=== PATIENT | female | born 1970 | race Caucasian/White ===

== ENCOUNTER 2018-02-28 17:19 | Emergency (ER) | payer BC ==
[~2018-02-28] VITALS: Ht 172.7 cm; Wt 113.4 kg
[~2018-02-28 17:19] MED LIST: ALBUTEROL2.5 MG/3 M INH; ANUSOL-HC30 GM RC; CABERGOLINE0.5 MG PO; CIPROFLOXACIN250 MG PO; CYCLOBENZAPRINE5 MG PO; DICLOFENAC SODI75 MG PO; DILAUDID4 MG PO; DILTIAZEM HCL10 GM TOP; DULOXETINE HCL30 MG PO; ENDOCET 5-3251 EACH PO; HYDROMORPHONE HC4 MG PO; LIDOCAINE30 G TOP; MEDROL4 M1 PO; MEDROXYPROGESTE10 MG PO; MIRALAX17 GM PO; NORCO 5-325 TA1 EACH PO; OMEPRAZOLE20 MG PO; PROCTOFOAM-HC F10 GM RC; PROCTOZONE-HC30 G1 PR; PYRIDIUM200 MG PO; ROBAXIN-750750 MG PO; SENOKOT-S TABL1 EACH PO; TESSALON PERLE100 MG PO; TIZANIDINE HCL4 M1 PO; TRAMADOL HCL50 MG PO; TRIAZOLAM0.25 MG PO; TYLENOL WITH C1 EACH PO; VENTOLIN HFA18 GM INH
[2018-02-28] MEDS ORDERED: ZOFRAN ODT4 MG PO (20:22)
== END 2018-02-28 20:27 | disposition home or self-care (01) ==
LOC: ED 17:19
PROC: 0T9B70Z Drainage of Bladder with Drainage Device, Via Natural or Artificial Opening (ICD-10-PCS; principal; 2018-02-28)
DX: K52.9 Noninfective gastroenteritis and colitis, unspecified (principal); Z88.1 Allergy status to other antibiotic agents; Z88.2 Allergy status to sulfonamides; Z79.899 Other long term (current) drug therapy
CPT/HCPCS: 51701; 76705; 80053; 81001; 82150; 83690; 84703; 85025; 96361; 96374; 96375; 99284; J1885; J2405; J7040

== ENCOUNTER 2020-04-08 17:15 | Emergency (ER) | payer BC ==
[~2020-04-08] VITALS: Ht 172.7 cm; Wt 118.8 kg
[~2020-04-08 17:15] MED LIST changes: +ZOFRAN ODT4 MG PO
--- OUTSIDE RECORDS SUMMARY | 2020-04-08 17:18 | XMS ---
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 ELuisa VISIT COUNT (12 MO.) 1 ABBIE Das TOTAL 1 NOTE: Visits indicate total known visits. ED/UCC VISIT TRACKING (12 MO.) 04/08/2020 17:16 ABBIE Vega OR TYPE: Emergency COMPLAINT: - DIARRHEA, FEVER INPATIENT VISIT TRACKING (12 MO.) No inpatient visits to display in this time frame [id number]
[2020-04-08] MEDS ORDERED: LISINOPRIL20 MG PO (17:30)
[2020-04-08] MEDS ORDERED: METFORMIN HCL500 M2 PO (17:32)
[2020-04-08] MEDS ORDERED: DULOXETINE HCL60 MG PO (17:34)
[2020-04-08] MEDS ORDERED: ZOFRAN4 MG PO (19:09)
[2020-04-08] MEDS ORDERED: DICYCLOMINE HCL10 MG PO (19:09)
== END 2020-04-08 20:45 | disposition home or self-care (01) ==
LOC: ED 17:15
DX: K52.9 Noninfective gastroenteritis and colitis, unspecified (principal); E11.9 Type 2 diabetes mellitus without complications; I10 Essential (primary) hypertension; Z88.8 Allergy status to other drugs, medicaments and biological substances; Z88.2 Allergy status to sulfonamides; Z79.899 Other long term (current) drug therapy; Z79.84 Long term (current) use of oral hypoglycemic drugs
CPT/HCPCS: 80053; 83690; 83735; 84703; 85025; 96361; 96374; 96375; 96376; 99284-25; C9803; J1885; J2405; J7030; J7040; U0002

== ENCOUNTER 2020-09-27 14:50 | Day surgery (SDC) | payer BC ==
[~2020-09-27] VITALS: Ht 167.6 cm; Wt 120.0 kg
[~2020-09-27 14:50] MED LIST changes: +DICYCLOMINE HCL10 MG PO; +DULOXETINE HCL60 MG PO; +LISINOPRIL20 MG PO; +METFORMIN HCL500 M2 PO; +ZOFRAN4 MG PO
--- NOTE | 2020-09-27 14:55 | NUR ---
PT ARRIVES TO DAY SURGERY WALKING INDEPENDENTLY ACCOMPANIED BY AND PLACED IN RM 7. WARM BLANKET PROVIDED.
[2020-09-27] MEDS ORDERED: FIBER500 MG PO (15:16)
[2020-09-27] MEDS ORDERED: LYRICA75 MG PO (15:16)
[2020-09-27] MEDS ORDERED: PROBIOTIC1 EAC1 PO (15:17)
[2020-09-27] MEDS ORDERED: CALCIUM500 M1 PO (15:17)
--- NOTE | 2020-09-27 15:55 | NUR ---
PRE PROCEDURE CHECK IN COMPLETE. PT RESTING IN LOCKED AND LOWERED BED, CALL LIGHT WITHIN REACH, AT THE BEDSIDE, NO FURTHER REQUESTS AT THIS TIME.
--- NOTE | 2020-09-27 17:18 | NUR ---
1710 UP TO BR. IV PATENT. HAS BEEN UPDATED WITH WAIT.
--- NOTE | 2020-09-27 18:08 | NUR ---
09/27/20 379 Dara Tavarez- PT ARRIVES TO PACU WITH EYES CLOSED. PT IS ABLE TO ANSWER QUESTIONS. PT REPORTS NO PAIN OR NAUSEA. RESP EVEN AND UNLABORED. OXYGEN SAT HIGH 90'S TO 100% ON 3L VIA NC.
--- NOTE | 2020-09-28 08:53 | OR ---
[facility] [address], [place] [address] Signed DATE OF OPERATION: 09/27/2020 SURGEON: Kev Collado MD PREOPERATIVE DIAGNOSES: 1. Persistent left lower abdominal pain, episodic rectal bleeding. 2. Colonoscopy greater than 20 years ago, uncertain location and findings. 3. Diarrhea, alternated with constipation. POSTOPERATIVE DIAGNOSES: 1. Extensive diverticulosis of sigmoid and left colon. 2. Hyperplastic polyp of rectosigmoid. PROCEDURES: Total colonoscopy to cecum with cold morcellation polypectomy x1. ANESTHESIA: Intravenous sedation, fentanyl 200 mcg, and Versed 7 mg. INDICATION: This 49-year-old white woman is a patient Dr. Welch and has problems of left lower abdominal pain and episodic rare rectal bleeding. She has a history of colonoscopy many years ago. She cannot remember where or when or what was found. She additionally complains of diarrhea, alternating with constipation. She was admitted at this time to undergo colonoscopy. She understands the risks of bleeding, infection, perforation. FINDINGS: The prep was good. Complete colonoscopy was undertaken of the cecum without question. She had numerous large and small diverticula of the sigmoid and left colon, likely accounting for symptoms. There was a small hyperplastic polyp of the sigmoid, which was excised. The rectum was normal except for some minimal internal hemorrhoidal changes. DESCRIPTION OF PROCEDURE: The patient was brought to the endoscopy suite and placed in lateral decubitus position, given intravenous sedation to the point of slurred speech and nystagmus with full cardiopulmonary monitoring. Digital rectal examination was normal. An Olympus video colonoscope was passed in the rectum and manipulated throughout the colon noting numerous diverticula of the sigmoid and left colon. The scope was advanced ultimately to the cecum. Ileocecal valve and appendiceal orifice were normal. Scope Electronically Signed By: KEV COLLADO MD 09/28/20 0853 PATIENT NAME: SIMONE FARAH OPERATIVE REPORT DATE OF : 68 REPORT #: [id number] PHYSICIAN: KEV COLLADO MD PCP: DEYVI CLINE MD REPORT IS CONFIDENTIAL AND NOT TO BE RELEASED WITHOUT AUTHORIZATION [facility] [address], [place] [address] Signed was withdrawn from that point and examination throughout showed no sign of abnormality until the left colon once again evaluated showing diverticula most extensive and most variable size in the sigmoid. At the rectosigmoid, there was a small hyperplastic polyp, this was excised with cold morcellation technique. Retroflexed view of the rectum, showed some minimal internal hemorrhoidal changes, but no other findings. The scope was withdrawn and removed. The patient was taken to the recovery room in good condition, having suffered no complication. CONCLUDING DIAGNOSIS: Symptoms likely related to diverticular disease and possibly hemorrhoidal bleeding from time to time. PLAN AND RECOMMEND: Metamucil one scoop daily, . Repeat colonoscopy in 10 years, sooner if clinically indicated. She will return to the ongoing care of Dr. Welch. If she has recurrent or persistent rectal bleeding, consideration would be for hemorrhoidal banding in the office. MD GEMMA Dang/RONEY /[id number] cc: Liz Welch MD Copies: LIZ WELCH MD ~ Electronically Signed By: KEV COLLADO MD 09/28/20 0853 PATIENT NAME: SIMONE FARAH OPERATIVE REPORT DATE OF : 68 REPORT #: [id number] PHYSICIAN: KEV COLLADO MD PCP: DEYVI CLINE MD REPORT IS CONFIDENTIAL AND NOT TO BE RELEASED WITHOUT AUTHORIZATION
--- NOTE | 2020-10-02 14:50 | PATH ---
[facility] [address], [place] [address] Signed SPECIMEN(S): A SIGMOID/ RECTO POLYP SPECIMEN SOURCE: A. SIGMOID/ RECTO POLYP CLINICAL HISTORY: Constipation, diarrhea. Hyperplastic polyps, diverticula MICROSCOPIC DESCRIPTION: Histologic sections of all submitted blocks are examined by light microscopy. These findings, together with the gross examination, support the pathologic diagnosis. FINAL PATHOLOGIC DIAGNOSIS: Colon, rectosigmoid, polyp, polypectomy: - Hyperplastic polyp. - Negative for dysplasia or malignancy. NAL:cml:C2NR GROSS DESCRIPTION: The specimen, labeled "Elma Farah, #1," and designated on the requisition "sigmoid/rectum polyp," is received in formalin and consists of two strickland soft tissue fragments that measure 0.3 and 0.3 cm in greatest dimension. The specimen is entirely submitted in cassette (A1). FB (under the direct supervision of a pathologist) The Gross Description was prepared using a voice recognition system. The report was reviewed for accuracy; however, sound-alike word errors, addition and/or deletions may occur. If there is any question about this report, please contact Client Services. PERFORMING LABORATORY: The technical component was performed by [facility], [address] [place] [address] (Manager Relocation: Charmaine Bonilla MD; CLIA# [id number]). [facility], [address] [address] (CLIA# [id number]). Diagnostician: Carley Carrizales MD Pathologist Electronically Signed 10/02/2020 PATIENT NAME: ELMA FARAH PATHOLOGY DATE OF : 68 REPORT #: [id number] PHYSICIAN: [facility] PCP: DEYVI CLINE MD REPORT IS CONFIDENTIAL AND NOT TO BE RELEASED WITHOUT AUTHORIZATION [address] [address] Signed Copies: ~ PATIENT NAME: ELMA FARAH PATHOLOGY DATE OF : [birth year] REPORT #: [id number] PHYSICIAN: [facility] PCP: DEYVI CLINE MD REPORT IS CONFIDENTIAL AND NOT TO BE RELEASED WITHOUT AUTHORIZATION
== END 2020-09-27 18:40 | disposition home or self-care (01) ==
LOC: OPS 14:50
PROVIDERS: ATTEND Surgery
PROC: 0DBN8ZX Excision of Sigmoid Colon, Via Natural or Artificial Opening Endoscopic, Diagnostic (ICD-10-PCS; principal; 2020-09-27 14:00)
DX: K63.5 Polyp of colon (principal); K57.30 Diverticulosis of large intestine without perforation or abscess without bleeding; K64.8 Other hemorrhoids; K62.5 Hemorrhage of anus and rectum; E66.01 Morbid (severe) obesity due to excess calories; J45.909 Unspecified asthma, uncomplicated; F32.9 Major depressive disorder, single episode, unspecified; Z88.1 Allergy status to other antibiotic agents; Z88.2 Allergy status to sulfonamides; Z79.1 Long term (current) use of non-steroidal anti-inflammatories (NSAID); Z79.899 Other long term (current) drug therapy; Z79.84 Long term (current) use of oral hypoglycemic drugs; Z79.52 Long term (current) use of systemic steroids; Z68.41 Body mass index [BMI] 40.0-44.9, adult
CPT/HCPCS: 99153; G0500; J2250; J3010; J7121

== ENCOUNTER 2024-03-28 16:25 | Inpatient (IN) | payer BC ==
[~2024-03-28] VITALS: Ht 167.6 cm; Wt 110.0 kg
[~2024-03-28 16:25] MED LIST changes: +CITRACAL + BON1 EACH PO; +FIBER500 MG PO; +LYRICA75 MG PO; -OMEPRAZOLE20 MG PO; +PRILOSEC OTC20 MG PO; +PROBIOTIC1 EAC1 PO
--- OUTSIDE RECORDS SUMMARY | 2024-03-28 16:28 | XMS ---
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 ELuisa VISIT COUNT (12 MO.) 1 ABBIE Das TOTAL 1 NOTE: Visits indicate total known visits. ED/UCC VISIT TRACKING (12 MO.) 03/28/2024 16:25 ABBIE Vega OR TYPE: Emergency COMPLAINT: - ABDOMINAL PAIN INPATIENT VISIT TRACKING (12 MO.) No inpatient visits to display in this time frame [id number]
[2024-03-28] MEDS ORDERED: PANTOPRAZOLE SODIUM 40 MG/10 ML VIAL IV ONE (16:30)
[2024-03-28] MEDS ORDERED: SODIUM CHLORIDE 0.9% 1,000 ML IV ONE (16:30)
[2024-03-28] MEDS ORDERED: ondansetron HCL 4 MG/2 ML VIAL IV ONE ×2 (16:30→17:00)
[2024-03-28 16:38] LABS: BASOPHILS 0.7 % (0-2); EOSINOPHILS 2.6 % (0-6); HEMOGLOBIN 13.2 g/dL (12.0-18.0); LYMPHOCYTES 20.1 % (24-44); MCH 27.2 (27-36); MCHC 32.2 g/dl (30-36); MCV 84.4 fl (81-99); MONOCYTES 3.8 % (0-12); NEUTROPHILS 72.8 % (39-80); PLATELET COUNT 458 K/uL (140-440); RBC 4.86 M/ul (4.3-5.7); RDW 16.1 (10.5-15.0)
[2024-03-28] MEDS ORDERED: ROSUVASTATIN CA10 MG PO (16:46)
[2024-03-28 16:53] LABS: ALBUMIN 4.1 g/dL (3.4-5.0); ALBUMIN/GLOBULIN RATIO 1.14 (1.1-2.4); ANION GAP 18.5 (7-21); BILIRUBIN, TOTAL 0.5 ng/dL (0.2-1.0); BUN/CREATININE RATIO 10.81 (6.0-28.6); CALCIUM 9.9 mg/dL (8.5-10.1); CREATININE, SERUM 1.11 mg/dL (0.55-1.02); POTASSIUM 4.5 mmol/L (3.5-5.1); PROTEIN, TOTAL 7.7 g/dL (6.4-8.2)
[2024-03-28] MEDS ORDERED: HYDROmorphone HCL 1 MG/ML SYR IV PRN ×3 (17:00→23:15)
[2024-03-28 17:50] LABS: LACTIC ACID, BLOOD 1.8 mmol/L (0.4-2.0)
[2024-03-28] MEDS ORDERED: CEFTRIAXONE/SODIUM CHLORIDE 2 GM/100 ML PIGGYBACK IV ONE (20:00)
[2024-03-28 20:02] LABS: INR 0.96 (0.80-1.30); PROTIME 12.1 Sec (11.2-14.2)
[2024-03-28] MEDS ORDERED: ENOXAPARIN SODIUM 40 MG/0.4 ML SYR SUB-Q ONE (20:45)
[2024-03-28 21:28] LABS: BILIRUBIN, URINE NEGATIVE (negative); BLOOD/HGB, URINE NEGATIVE (Negative); KETONE, URINE NEGATIVE (Negative); LEUK ESTERASE, URINE NEGATIVE (negative); NITRITE, URINE NEGATIVE (negative)
[2024-03-28] MEDS ORDERED: ROCURONIUM BROMIDE 50 MG/5 ML SYR ONE (21:36)
[2024-03-28] MEDS ORDERED: propofoL 200 MG/20 ML VIAL ONE (21:36)
[2024-03-28] MEDS ORDERED: LIDOCAINE HCL 2% 5 ML SDV ONE (21:36)
[2024-03-28] MEDS ORDERED: KETAMINE in NS 50 MG/5 ML SYR ONE (21:36)
[2024-03-28] MEDS ORDERED: ondansetron HCL 4 MG/2 ML VIAL ONE (21:38)
[2024-03-28] MEDS ORDERED: dexmedeTOMIDine HCl 200 MCG/2 ML VIAL ONE (21:38)
[2024-03-28] MEDS ORDERED: DEXAMETHASONE SOD PHOS 4 MG/ML VIAL ONE (21:38)
[2024-03-28] MEDS ORDERED: KETOROLAC TROMETHAMINE 30 MG/ML VIAL ONE (21:38)
[2024-03-28] MEDS ORDERED: LIDOCAINE HCL 1% 30 ML SDV ONE (21:38)
[2024-03-28] MEDS ORDERED: ALBUTEROL 1 PUFF INH ONE (21:41)
[2024-03-28] MEDS ORDERED: ACETAMINOPHEN 1,000 MG/100 ML VIAL ONE (21:41)
[2024-03-28] MEDS ORDERED: ePHEDrine sulfate 50 MG/ML AMP ONE ×2 (22:10→22:16)
[2024-03-28] MEDS ORDERED: SUGAMMADEX SODIUM 200 MG/2 ML ML ONE (22:31)
[2024-03-28] MEDS ORDERED: NALOXONE HCL 0.4 MG SYR IV PRN (22:45)
[2024-03-28] MEDS ORDERED: MIDAZOLAM HCL 2 MG/2 ML VIAL IV PRN (22:45)
[2024-03-28] MEDS ORDERED: fentaNYL citrate 50 MCG/ML SDV IV PRN (22:45)
[2024-03-28] MEDS ORDERED: IBLOOD GLUCOSE TEST STRIP 1 EA TEST VI PRN (22:45)
[2024-03-28] MEDS ORDERED: LACTATED RINGER'S 1,000 ML IV ONE (22:56)
[2024-03-28] MEDS ORDERED: ACETAMINOPHEN 650 MG SUPP PR PRN (23:15)
[2024-03-28] MEDS ORDERED: DEXTROSE 5% - LACTATED RINGERS 1,000 ML IV SCH (23:15)
[2024-03-28] MEDS ORDERED: HYDROCODONE/ACETA 5/325 TAB PO PRN (23:15)
[2024-03-28] MEDS ORDERED: ACETAMINOPHEN 325 MG TAB PO PRN (23:15)
[2024-03-28] MEDS ORDERED: PROCHLORPERAZINE EDISYLATE 10 MG/2 ML VIAL IV PRN (23:15)
[2024-03-28] MEDS ORDERED: ondansetron HCL 4 MG/2 ML VIAL IV PRN (23:15)
--- NOTE | 2024-03-28 23:37 | NUR ---
03/28/24 2337 Kristina Thomas 2308 PT ARRIVED IN PACU SLEEPY. ICE TO ABD. 2310 PT SHIVERING. WARM BLANKETS PLACED FOR COMFORT. 2320 CONTINUES TO SHIVER. WARM AIR ON AND WARM BLANKET PLACED AROUND HEAD. 2330 SHIVERING STOPPED. NO C/O'S.
[2024-03-28 23:57] VITALS: BP 139/59
[2024-03-29] VITALS (11 sets, daily range): BP systolic 106–149; BP diastolic 49–68
--- NOTE | 2024-03-29 00:52 | NUR ---
ADMIT ASSESSMENT DONE, PT BECOMING DROWSY AFTER PAIN MEDICATION CPOX DOWN TO 88%, PT PLACED ON OXYGEN AT 2L/NC, PT RESTING WITH EYES CLOSED, LAP SITE NEAR UMBILICUS WITH SATUATED WITH SANG DRAINAGE, NO LEAKAGE, OTHER TWO SITES DRY AND INTACT, ICE BAG TO ABDOMEN. HOB ELEVATED APPROX 38 DEGREES, SIDE RAILS UP X 2, BED LOW POSITION, CALL LIGHT IN REACH, AT BEDSIDE.
--- NOTE | 2024-03-29 02:05 | NUR ---
PT ASLEEP, AWAKEN FOR VS, PT OPENS EYES, NO REQUESTS AT THIS TIME, UMBILICUS DRESSING SAT WITH SANG DRAINAGE BUT NOT LEAKING OUT FROM DRESSING, RIGHT SIDE AND LOWER ABDOMINAL DRESSINGS DRY AND INTACT, IVF INFUSING WELL.
--- NOTE | 2024-03-29 02:40 | NUR ---
PT AWAKE AND ALERT, PT ASSISTED UP TO BR BY EDWARD KILGORE, GAIT STEADY, PT VOIDED 400ML YELLOW URINE, BACK TO BED, UMBILICAL DRESSING REINFORCED BY EDWARD KILGORE, IV SITE WITH SOME LEAKAGE, DRESSING CHANGED, SITE REMAINS PATENT, FRESH GOWN PLACED ON PT, PT DENIES NEED FOR PAIN MED AT THIS TIME, PT REPORTS BEING WARM, BLANKETS REMOVED PER PT REQUEST. REMAINS AT BEDSIDE.
--- NOTE | 2024-03-29 04:15 | NUR ---
PT ASLEEP, RESP EVEN AND REG. IVF INFUSING WELL.
--- NOTE | 2024-03-29 05:05 | NUR ---
PT AWAKE, VS DONE AND STABLE, PT REPORTS SURGICAL PAIN IN ABDOMEN, MEDICATED WITH 1 NORCO PER REQUEST, JELLO AND ENSURE CLEAR GIVEN, NO C/O NAUSEA, ABDOMINAL LAPS SITES WITHOUT FURTHER DRAINAGE, IV SITE PATENT, IVF INFUSING WELL.
[2024-03-29 05:32] LABS: BASOPHILS 0.2 % (0-2); HEMATOCRIT 32.8 % (35.0-50.0); HEMOGLOBIN 10.7 g/dL (12.0-18.0); LYMPHOCYTES 9.7 % (24-44); MCH 27.7 (27-36); MCHC 32.5 g/dl (30-36); MONOCYTES 2.3 % (0-12); NEUTROPHILS 87.8 % (39-80); PLATELET COUNT 285 K/uL (140-440); RBC 3.85 M/ul (4.3-5.7); RDW 16.1 (10.5-15.0)
[2024-03-29 05:52] LABS: ANION GAP 13.1 (7-21); BUN/CREATININE RATIO 12.94 (6.0-28.6); CALCIUM 8.4 mg/dL (8.5-10.1); CREATININE, SERUM 0.85 mg/dL (0.55-1.02); PHOSPHORUS, INORGANIC 3.7 mg/dL (2.5-4.9); POTASSIUM 4.1 mmol/L (3.5-5.1)
[2024-03-29 05:59] LABS: MAGNESIUM 1.9 mg/dL (1.8-2.4)
--- NOTE | 2024-03-29 06:09 | OR ---
[facility] [address], [place] [address] Signed DATE OF OPERATION: 03/28/2024 SURGEON: Fany Couch MD PREOPERATIVE DIAGNOSIS: Acute appendicitis. POSTOPERATIVE DIAGNOSIS: Acute inflamed appendicitis. PROCEDURE: Laparoscopic appendectomy. ESTIMATED BLOOD LOSS: None. INDICATIONS: Elma is a 53-year-old obese female, who developed abdominal pain earlier today with anorexia, nausea and some diarrhea. It seemed to be more on the left than on the right. She thought maybe it was similar to her C diff colitis. She came to emergency room for evaluation. Indeed, she seemed to be a little more tender on the left. White count was elevated. A CT scan showed her 12 mm thickened appendix with periappendiceal inflammation. I have been asked to see her as a general surgeon on-call in the emergency room. We gave her Rocephin and Flagyl. She has had a recent urinary tract infection and upper respiratory infection for which she has taken a couple courses of antibiotics. She had a few bubbles air in the urinary bladder. However, she has no dysuria. We went ahead and send the urinalysis and will send that for culture as indicated. I brought with me a brochure on the appendix. I reviewed that with Elma and her . They understand the location and function of the appendix. We discussed laparoscopic versus open appendectomy. We reviewed the expected intraop and postop course. There is risk including, but not limited to bleeding, infection, scarring, change in contour of the skin, damage to bowel, appendiceal stump leak, postoperative intra-abdominal abscess, incisional hernias and other unforeseen comorbidities. They had expressed understanding and wished to proceed. DESCRIPTION OF PROCEDURE: Elma was taken into the operating room and placed in the supine position under general endotracheal tube anesthesia. She was already given Rocephin and Flagyl. She received Lovenox subcutaneously. SCDs were utilized. A Toribio catheter was inserted with return of clear yellow urine without difficulty. She was then prepped and draped Electronically Signed By: FANY COUCH MD 03/29/24 0609 PATIENT NAME: ELMA FARAH OPERATIVE REPORT DATE OF : 68 REPORT #: [id number] PHYSICIAN: FANY COUCH MD PCP: AURA NGUYEN PAC REPORT IS CONFIDENTIAL AND NOT TO BE RELEASED WITHOUT AUTHORIZATION [facility] [address], [place] [address] Signed in the usual sterile fashion. We placed our trocars in our usual positions under direct visualization of camera without difficulty. We located the cecum and we elevated the appendix. Indeed, it was quite thickened. We cleared off the base of the appendix with the help of the cautery and we divided the appendix from the cecum with the help of a linear stapler. We then divided the mesoappendix with the help of the vascular load on linear stapler. Hemostasis was excellent in both staple lines. The appendix was then placed into an EndoCatch bag and taken out through the right subcostal trocar site. We used our laparoscopic suturing device to pass 0-Vicryl suture on either side of the fascia of the right subcostal trocar site. This was tied down to close this fascia primarily. After this, all the gas was allowed to escape and the remaining two trocars were removed. We closed the fascia of the supraumbilical trocar site with interrupted [id number] and simple 0-Vicryl sutures. Local anesthetic was injected into all three trocar sites. Each trocar site was irrigated and suctioned out until clear. The skin and dermis of each trocar site were closed with interrupted 3-0 subcuticular Monocryl sutures. Dry gauze and tape was applied to all three incisions. Her Toribio catheter was removed without difficulty. She was awakened from anesthesia, extubated in the OR, and taken to recovery room in stable condition. Fany Couch MD [facility] /[id number] cc: Aura Nguyen PA-C Copies: AURA NGUYEN ~ Electronically Signed By: FANY COUCH MD 03/29/24 06 PATIENT NAME: ELMA FARAH OPERATIVE REPORT DATE OF : 68 REPORT #: [id number] PHYSICIAN: FANY COUCH MD PCP: AURA NGUYEN REPORT IS CONFIDENTIAL AND NOT TO BE RELEASED WITHOUT AUTHORIZATION
--- NOTE | 2024-03-29 06:09 | CONS ---
[facility] [address], [place] [address] Signed DATE OF CONSULTATION: 03/28/2024 CHIEF COMPLAINT: Lower abdominal pain. HISTORY OF PRESENT ILLNESS: Elma is a 53-year-old obese diabetic female, who developed lower abdominal pain earlier this afternoon. It seems to be more on the left than on the right. She has been anorexic and having nausea and some diarrhea. She thought it was similar to when she had C diff colitis in the past. She tells me she has recurrent urinary tract infections and just finished up some amoxicillin for the urinary tract infection, but also she had a productive cough. She said both of those are better. She thought this was new. In the office, she seems to have diffuse tenderness, but more so in the left lower quadrant. Her white count was at 15,000. The rest of the labs were fine. CT scan of head and pelvis shows that her appendix is 12 mm and some periappendiceal inflammation. She had a few tiny bubbles in the urinary bladder, but she is denying any dysuria. Consequently, I have been asked to see her as a general surgeon on-call here in the ER. She has been given Rocephin and Flagyl. Her is with her. PAST MEDICAL HISTORY: C diff colitis, asthma, type 2 diabetes, hypertension, hyperlipidemia, and recurrent urinary tract infections and obesity. PAST SURGICAL HISTORY: L4-L5 diskectomy without metal right breast lumpectomy, a , tonsils, D and C, and hemorrhoid surgery. SOCIAL HISTORY: She does not smoke or drink. Dejan Nguyen is her primary care provider. She prefers a [facility]. Lilli is her at [phone]. 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 She does drive. She has one child. FAMILY HISTORY: Diabetes and dementia. REVIEW OF SYSTEMS: She had 10 systems reviewed. She told me no metal in her back. ALLERGIES: Sulfa, erythromycin, nitrofurantoin and moxifloxacin. Electronically Signed By: FANY COUCH MD 03/29/24 0609 PATIENT NAME: ELMA FARAH CONSULTATION DATE OF : 68 REPORT #: [id number] PHYSICIAN: FANY COUCH MD PCP: DEJAN NGUYEN PAC REPORT IS CONFIDENTIAL AND NOT TO BE RELEASED WITHOUT AUTHORIZATION [facility] [address] [place] [address] Signed MEDICATIONS: Diclofenac, omeprazole, albuterol, lisinopril, metformin, duloxetine, pregabalin, calcium and rosuvastatin. PHYSICAL EXAMINATION: VITAL SIGNS: Her blood pressure is 115/61, heart rate 90, respiratory rate 14, she is 97.6 degrees. She is 97% on room air. She is 5 feet 6 inches tall. She is 101 kg. Body mass index is 39. GENERAL: Elma is a 53-year-old obese female, lying supine semi-recumbent in her ER bed watching TV with her . She is in no acute distress. LUNGS: Clear to auscultation bilaterally. HEART: Regular rate and rhythm without murmurs. ABDOMEN: Obese, but soft. She is tender in the lower abdomen, but seems to be more on the left than on the right. LABORATORY DATA: Her white blood count [address]58[address], hemoglobin 13, neutrophils 72. Electrolytes unremarkable. Lactic acid 1.8, alkaline phosphatase 122, albumin 4.1. Beta-hCG negative. RADIOGRAPHIC STUDIES: CT scan and pelvis is reviewed. She does have a 12 mm appendix with some periappendiceal inflammation. She has a few tiny bubbles in her urinary bladder. ASSESSMENT AND PLAN: Elma is a 53, obese female, who presents with acute appendicitis. I brought a brochure with me on appendicitis and we looked at that together page by page. She understands the location of function of the appendix. She understands laparoscopic versus open appendectomy. We have reviewed the expected intraop and postop course. There is risk including, but not limited to bleeding, infection, scarring, change in contour of the skin, damage to bowel, appendiceal stump leak, postoperative intraabdominal abscess, incisional hernias and other unforeseen comorbidities. She has expressed understanding would like to proceed with surgery. Fany Couch MD ALB/MODL /[id number] Electronically Signed By: FANY COUCH MD 03/29/24 0609 PATIENT NAME: ELMA FARAH CONSULTATION DATE OF : 68 REPORT #: [id number] PHYSICIAN: FANY COUCH MD PCP: DEJAN NGUYEN PAC REPORT IS CONFIDENTIAL AND NOT TO BE RELEASED WITHOUT AUTHORIZATION [address] [address] Signed cc: Fany Couch MD Patient Chart Dejan Nguyen PA-C Copies: FANY COUCH MD, ERIKA PAC ~ Electronically Signed By: FANY COUCH MD 03/29/24 0609 PATIENT NAME: ELMA FARAH CONSULTATION DATE OF : 68 REPORT #: [id number] PHYSICIAN: FANY COUCH MD PCP: DEJAN NGUYEN REPORT IS CONFIDENTIAL AND NOT TO BE RELEASED WITHOUT AUTHORIZATION
--- NOTE | 2024-03-29 06:40 | NUR ---
DR COUCH TO ROOM TO EXAMINE PT, ABDOMINAL DRESSINGS REMOVED PER MD, VO TO COVER WITH LINA PRN LEAKAGE, PLAN OF CARE DISCUSSED.
--- NOTE | 2024-03-29 07:05 | NUR ---
BEDSIDE REPORT TO GATITO KILGORE, LINA DRESSING OVER SURGICAL LAB SITES AND SURGICAL TAPE APPLIED, PT UP TO BR TO VOID, GAIT STEADY, INSTRUCTED PT TO CALL WHEN SHE IS DONE FOR ASSISTANCE BACK TO BED.
--- NOTE | 2024-03-29 07:36 | EKG ---
[facility] [address] [facility] [place] [address] Signed Normal sinus rhythm Left axis deviation Incomplete right bundle branch block Abnormal ECG When compared with ECG of 03-NOV-2016 04:42, No significant change was found Confirmed by RADHA YANCEY MD ([id number]) on 03/29/2024 7:36:07 AM Electronically Signed By: RADHA YANCEY 03/29/24 0736 PATIENT NAME: SIMONE FARAH JASMIN Electrocardiogram DATE OF : 68 PHYSICIAN: RADHA YANCEY REPORT #: [id number] REPORT IS CONFIDENTIAL AND NOT TO BE RELEASED WITHOUT AUTHORIZATION
--- NOTE | 2024-03-29 07:52 | NUR ---
UR CLINICAL REVIEW: [facility] CRITERIA MANUELA HERNANDEZ PPO OBS 03/28/24 @ 1626 RECVD REQUEST FOR CLINICALS- FAXED FOR REVIEW DISCHARGE TO HOME WHEN STABLE 03/30/24
--- NOTE | 2024-03-29 07:54 | NUR ---
Patient awake sitting up in chair, alert and oriented x4. Patient reports her pain is tolerable. IV patent, fluids infusing per provider order. Patient denies needs at this time.
[2024-03-29] MEDS ORDERED: CEFTRIAXONE/SODIUM CHLORIDE 2 GM/100 ML PIGGYBACK IV SCH (09:00)
[2024-03-29] MEDS ORDERED: ENOXAPARIN SODIUM 40 MG/0.4 ML SYR SUB-Q SCH (09:00)
--- NOTE | 2024-03-29 09:03 | NUR ---
Patient sitting up in chair, alert and oriented x4, no acute distress. Patient reports 6/10 abdominal pain, admin one tab norco 5/325mg po at this time. Bowel tones active x4 abd quadrants, pt denies nausea. Patient plans to take a walk here shortly after pain medication starts working. Call light within reach.
[2024-03-29] MEDS ORDERED: VENTOLIN HFA18 GM INH (09:41)
[2024-03-29] MEDS ORDERED: DEXTROAMP-AMPHE30 MG PO (09:42)
[2024-03-29] MEDS ORDERED: DICLOFENAC SODI50 GM TOP (09:43)
[2024-03-29] MEDS ORDERED: KETOCONAZOLE120 ML TOP (09:44)
--- NOTE | 2024-03-29 09:50 | NUR ---
IN TO SPEAK WITH THE PATIENT. PATIENT JUST RETURNING TO BED, GATITO KILGORE AT BEDSIDE. PATIENT LIVES IN A ONE STORY HOME WITH HER CARLOS WHO IS AT THE BEDSIDE. PATIENT IS NORMALLY INDEPENDENT WITH ALL ADLS AND CURRENTLY WORK FOR [employer]. DENIES NEED FOR DM OR FINANCIAL RESOURCES. PATIENT AND EXPRESS NO DISCHARGE NEEDS AT THIS TIME.
--- NOTE | 2024-03-29 10:40 | NUR ---
MED REC COMPLETE
--- NOTE | 2024-03-29 14:34 | NUR ---
Patient sitting up in bed, alert and oriented x4. Patient reports her pain is 3/10 and tolerable. IV site remains patent, fluids infusing per provider order. No current needs, personal supplies and call light within reach.
--- NOTE | 2024-03-29 17:07 | NUR ---
PATIENT WALKED TWO LAPS AROUND MED SURG. THIS MORNING. DID ANOTHER TO LAPS WITH HER THIS AFTERNOON.
--- NOTE | 2024-03-29 17:34 | NUR ---
Patient's face is a bit flushed, warm to touch. Patient's vital signs are stable, afebrile. Patient denies sob and or itching. Patient reports consuming a germaine/carrot drink from her family that they brought in a few hours ago. Patient has no notable distress, she reports her pain is tolerable as well. Patient received abx early this morning. Patient instructed to drink water moving forward this evening. Patient reports she will alert staff if she has any further discomfort. IV site patent.
--- NOTE | 2024-03-29 18:09 | NUR ---
Patient walked two labs around the medical floor, tolerated well. Patient denies passing flatus this shift. Patient has active bowel tones x4 quadrants.
--- NOTE | 2024-03-29 18:13 | NUR ---
DR. COUCH NOTIFIED VIA PHONE OF PT CHEST AND FACE FLUSHING. NEW ORDER RECEIVED TO DISCONTINUE FLAGYL AND ROCEPHIN.
--- NOTE | 2024-03-29 19:15 | NUR ---
PATIENT AMBULATES 3LAPS AROUND THE NURSE'S STATION WITH THIS STAFFING CONSULTANT. PATIENT BACK TO ROOM AND STAY UP IN THE CHAIR.
--- NOTE | 2024-03-29 19:37 | NUR ---
REPORT RECIEVED FROM DAY SHIFT RN. PATIENT RESTING IN BED, WANTING TO WALK THE UNIT. PATIENT UP WITH VETERINARY BACTERIOLOGIST TO AMBULATE HALLS.
--- NOTE | 2024-03-29 20:22 | NUR ---
PATIENT RESTING IN CHAIR. VS AND I&Os OBTAINED AND RECORDED. PATIENT REPORTS 9/10 ABD PAIN. PRN PAIN MEDICATION ADMINISTERED. IV FLUSHES WNL. ASSESSMENT COMPLETE. PATIENT ABD TENDER UPON PALAPTION. BOWEL TONES ACTIVE. GAUZE ON LAP SITES C/D/I. NO FURTHER NEEDS AT THIS TIME. CALL LIGHT IN REACH.
--- NOTE | 2024-03-29 22:33 | NUR ---
CALL LIGHT ANSWERED. PATIENT REPORTS 10/10 ABD PAIN. PRN PAIN MEDICATION ADMINISTERED. CPOX IN PLACE. NEW BAG IV FLUID INFUSING PER ORDER. SCDs IN PLACE. FRESH ICE WATER PROVIDED. PATIENT HAS NO FURTHER NEEDS. CALL LIGHT IN REACH.
--- NOTE | 2024-03-29 23:43 | NUR ---
PATIENT RESTING IN BED WITH EYES CLOSED. RESPIRATIONS EVEN AND UNLABORED. CALL LIGHT IN REACH.
[2024-03-30] VITALS (7 sets, daily range): BP systolic 124–176; BP diastolic 62–88
--- NOTE | 2024-03-30 02:34 | NUR ---
PATIENT UP TO BATHROOM TO VOID YELLOW URINE. PATIENT BACK TO BED. SCDs IN PLACE. PATIENT REPORTS 4/10 PAININ ABD, NONTENDER TO TOUCH. GAUZE REMOVED OFF LAP SITES. X3 LAP SITES CLEAN AND DRY. BOWEL TONES ACTIVE. PATIENT REFUSING PAIN MEDICATION AT THIS TIME. PATIENT EDUCATED TO CALL IF SHE CHANGES MIND. PATIENT HAS NO FURTHER NEEDS. CALL LIGHT IN REACH.
--- NOTE | 2024-03-30 04:58 | NUR ---
PATIENT RESTING IN BED WITH EYES CLOSED. RESPIRATIONS EVEN AND UNLABORED. CALL LIGHT IN REACH.
--- NOTE | 2024-03-30 06:10 | NUR ---
PATIENT RESTING IN BED. VS AND I&Os OBTAINED AND RECORDED. PATIENT DENIES PAIN AT THIS TIME. NO FURTHER NEEDS. CALL LIGHT IN REACH.
--- NOTE | 2024-03-30 07:08 | NUR ---
REPORT RECIEVED FROM MAGUI PATHAK. PT LAYING IN BED AND REPSONDS WHEN ADDRESSED. PT REQUESTING "WORK RELEASE FROM FOR WORK." PAPER PLACED ON PTs CHART FOR MD. PT REPORTS ALREADY ASKING MD. PT REPORTING RUBALCAVA AND REQUESTING PRN TYLENOL. WILL RETURN WITH PRN TYLENOL. COOL CLOTH PLACED ON PTs HEAD. PT DENIES ANY OTHER NEEDS AT THIS TIME. CALL LIGHT IN REACH. IV INFUSING WNL.
--- NOTE | 2024-03-30 07:57 | NUR ---
IN PT REQUESTING PRN TYLENOL FOR RUBALCAVA 01/26. PRN TYLENOL ADMINISTERED, SEE MAR. IV FLUSHES WNL AND IS INFUSING WNL. IV FLUIDS DECREASED TO 75ML/HR PER ORDRES, SEE MAR. ASSESSMENT COMPLETE. LUNG SOUNDS CLEAR. BOWEL TONES ACTIVE. ABD TENDER WITH PALPATION. 3 LAP SITES OPEN TO AIR, DRY NO ERYTHEMIA. MIDLINE LOWER LAP SITE NOTED TO HAVE BRUISING. RIGHT LAP SITE NOTED TO HAVE SOME BRUISING. ALL LAP SITE EDGES WELL APPROXIMATED. PT DENIES ANY NUMBNESS/TINGLING AT THIS TIME. PT REPORTS PASSING "TINY AMOUNTS" OF FLATUS. PEDAL PULSES PALPABLE, EQUAL. PT REPORTING TOILETING NEEDS. SBA FROM BED TO RESTROOM. PT INFORMED TO PULL CALL LIGHT CORD WHEN DONE. PT AGREEABLE. PT DENIES ANY OTHER NEEDS AT THIS TIME. CALL LIGHT IN REACH.
--- NOTE | 2024-03-30 10:32 | NUR ---
IN TO ROUND ON PT. PT SITTING UP IN RECLINER. PT REPORTING RUBALCAVA HAS GONE AWAY. PT REPORTING "FEELING TIRED." OFFED TO ELEVATE PTs LEGS IN RECLINER, PT AGREES, BLE ELEVATED IN RECLINER. PILLOW PLACED BEHIND PTs HEAD PER REQUEST. WARM BLANKET PROVIDED. PT DENIES ANY OTHER NEEDS AT THIS TIME. CALL LIGHT IN REACH. VISITOR IN ROOM.
--- NOTE | 2024-03-30 11:30 | NUR ---
Pt sleeping in the chair soundly. Spouse in room and denies pt has needs at this time. Pt not awakened.
--- NOTE | 2024-03-30 12:40 | NUR ---
IN TO ROUND ON PT. PT UP USING RESTROOM. PT DENIES ANY NEEDS FROM THIS RN. CALL LIGHT IN REACH.
--- NOTE | 2024-03-30 12:49 | NUR ---
PT AMBULATING LY. NO NEEDS FROM THIS RN.
--- NOTE | 2024-03-30 14:29 | NUR ---
IN TO ROUND ON PT. PT SITTING UP IN RECLINER WITH BLE ELEVATED. PT REPSONDS WHEN ADDRESSED. ASSESSMENT COMPLETE. BOWEL TONES ACTIVE. PT DENIES ABD TENDERNESS WITH PALPATION. ABD SOFT WITH PALPATION. PT REPORTS PASSING "SOME" FLATUS. PT DENIES ANY PAIN AT THIS TIME. PT STATES "I JUST HAD A ROUGH NIGHT LAST NIGHT, SO I AM TIRED." PT DENIES ANY OTHER NEEDS AT THIS TIME. CALL LIGHT IN REACH.
--- NOTE | 2024-03-30 16:11 | NUR ---
PATIENT UP AMBULATING IN HALLWAY INDEPENDENTLY AT THIS TIME. TOLERATING AMBULATION WELL. NO NEEDS AT THIS TIME.
--- NOTE | 2024-03-30 17:39 | NUR ---
IN TO ROUND ON PT. PT SITTING UP IN RECLINER AND REPSONDS WHEN ADDRESSED. PT REPORTING BEING DONE WITH DINNER TRAY, REMOVED. PT REPORTING PAIN 2-12/26. PT DENIES ANY PRN PAIN MEDICATION WHEN OFFERED. PT DENIES ICE PACK. PT STATES "I JUST WANT TO GO HOME SO I CAN GET MORE RELAXED." PT DENIES ANY OTHER NEEDS CALL LIGHT IN REACH.
--- NOTE | 2024-03-30 18:48 | NUR ---
IN PTs TO NURSES STATION. PT REPORTING IV LEAVING. IV NOTED TO LEAK AT SITE. IV REMOVED. WILL CALL DR. COUCH PT IS TOLERATING SOFT DIET AND PO INTAKE. PT DENIES ANY OTHER NEEDS. CALL LIGHT IN REACH. IN ROOM.
--- NOTE | 2024-03-30 18:54 | NUR ---
THIS RN CALLED DR. COUCH REGARDING IV FLUIDS. VERBAL ORDERS FROM DR. COUCH TO "DC IV AND IV FLUIDS AND ADVANCE PT TO REGULAR DIET." VERIFIED WITH READBACK.
--- NOTE | 2024-03-30 19:44 | NUR ---
REPORT RECIEVED FROM DAY SHIFT RN. PATIENT RESTING IN BED ON BACK WATCHING TV. PATIENT DENIES NEEDS AT THIS TIME. CALL LIGHT IN REACH.
--- NOTE | 2024-03-30 20:24 | NUR ---
CALL LIGHT ANSWERED. PT WANTED MORE ICE WATER. IC EWATER REFILLED AND DEPUTY COURT OBTAINED VITALS AND I&O. PT STATES NO FURTHER NEEDS AT THIS TIME. CALL LIGHT WITHIN REACH.
--- NOTE | 2024-03-30 20:39 | NUR ---
PATIENT RESTING IN CHAIR. PATIENT REPORTS MINIMAL PAIN IN UPPER ABD. INSICION SITES CLEAN AND DRY. PATIENT DENIES FURTHER NEEDS BUT STATES "I JUST WANT TO GO HOME". PATIENT EDUCATED TO CALL IF SHE NEEDS ANYTHING, OR NEEDS PRN PAIN MEDICATION. CALL LIGHT IN REACH.
--- NOTE | 2024-03-30 22:14 | NUR ---
PATIENT RESTING IN BED ON BACK WITH EYES CLOSED. RESPIRATIONS EVEN AND UNLABORED. CALL LIGHT IN REACH.
--- NOTE | 2024-03-30 23:58 | NUR ---
PATIENT RESTING IN BED ON BACK WITH EYES CLOSED. RESPIRATIONS EVEN AND UNLABORED. CALL LIGHT IN REACH.
--- NOTE | 2024-03-31 02:06 | NUR ---
PATIENT RESTING IN BED, REQUESTING FRESH ICE WATER. ICE WATER PROVIDED. NO FURTHER NEEDS. CALL LIGHT IN REACH.
--- NOTE | 2024-03-31 02:55 | NUR ---
CALL LIGHT ANSWERED. PATIENT REPORTS 5/10 HEADACHE PAIN. PRN PAIN MEDICATION ADMINISTERED. FRESH WATER PROVIDED. NO FURTHER NEEDS. CALL LIGHT IN REACH.
--- NOTE | 2024-03-31 04:29 | NUR ---
PATIENT RESTING IN CHAIR WITH EYES CLOSED. RESPIRATIONS EVEN AND UNLABORED. CALL LIGHT IN REACH.
[2024-03-31 05:44] VITALS: BP 144/70
--- NOTE | 2024-03-31 05:48 | NUR ---
PITCH FLAKER ENTERED ROOM AND OBTAINED VITALS AND I&O. PT STATES NO FURTHER NEEDS AT THIS TIME. CALL LIGHT PLACED WITHIN REACH.
[2024-03-31 06:29] VITALS: BP 144/70
--- NOTE | 2024-03-31 06:46 | NUR ---
THIS RN IN TO PATIENT ROOM WITH MD. PATIENT RESTING IN CHAIR. INCISION SITES CLEAN AND DRY X3. BOWEL TONES ACTIVE. NO FURTHER NEEDS. CALL LIGHT IN REACH.
--- NOTE | 2024-03-31 07:59 | NUR ---
Board has been updated and call light has been placed within reach. No request at this momment
[2024-03-31] MEDS ORDERED: HYDROCODON-ACE1 EAC8 PO (09:07)
[2024-03-31 09:11] VITALS: BP 150/85
--- NOTE | 2024-04-01 12:01 | PATH ---
[facility] [address] [place], [place] [address] Signed SPECIMEN(S): A APPENDIX SPECIMEN SOURCE: A. APPENDIX CLINICAL HISTORY: Acute appendicitis FINAL PATHOLOGIC DIAGNOSIS: Appendix, appendectomy: - Early acute appendicitis BRP MICROSCOPIC EXAMINATION: Histologic sections of all submitted blocks are examined by light microscopy. These findings, together with the gross examination, support the pathologic diagnosis. GROSS DESCRIPTION: The specimen, labeled and designated "loren Farah," is received in formalin and consists of Specimen: Appendix with mesoappendix. Dimensions: 6.5 x 2.8 x 1.5 cm. Serosa: [place]-arriaga slightly roughened. Defect: Not grossly identified. Inking: Staple line is inked black, serosa inked Blue. Mucosa: [place]-pink to red-brown. Fecalith: Lumen contains brown-arriaga to red-brown soft tissue/fecal material. Additional: None. Golf [employer] Manager sections are submitted Cassette Summary: (A1) appendix and mesoappendix margin, shaved, and tip (A2) cross-sections of appendix AC (under the direct supervision of a pathologist) The Gross Description was prepared using a voice recognition system. The report was reviewed for accuracy; however, sound-alike word errors, addition and/or deletions may occur. If there is any question about this report, please contact Client Services. ADDITIONAL NOTES: Immunohistochemical and/or in situ hybridization studies if performed in this PATIENT NAME: SIMONE FARAH PATHOLOGY DATE OF : 68 REPORT #: [id number] PHYSICIAN: LA TUCKER PCP: DEJAN SIEGEL PAC REPORT IS CONFIDENTIAL AND NOT TO BE RELEASED WITHOUT AUTHORIZATION [facility] [address] [place], [place] [address] Signed case included appropriate positive controls that reacted as expected. This test was developed and its performance characteristics determined by [facility]. It has not been cleared or approved by the U.S. Food and Drug Administration. The FDA has determined that such clearance or approval is not necessary. This test is used for clinical purposes. It should not be regarded as investigational or for research. [facility] is certified under the Clinical Laboratory Improvement Amendments of 1988 (CLIA) as qualified to perform high complexity clinical laboratory testing. PERFORMING LABORATORY: Technical component was performed by [facility], [address] [place] [address] (CLIA# [id number]). Professional interpretation was performed by [facility] [address] [place] [id number] Diagnostician: Luciano Schneider MD Pathologist Electronically Signed 04/01/2024 Copies: ~ PATIENT NAME: SIMONE FARAH PATHOLOGY DATE OF : 68 REPORT #: [id number] PHYSICIAN: LA TUCKER PCP: DEJAN SIEGEL PAC REPORT IS CONFIDENTIAL AND NOT TO BE RELEASED WITHOUT AUTHORIZATION
--- NOTE | 2024-04-04 12:38 | DS ---
[facility] [address] [place], [place] [address] Signed ADMISSION DATE: 03/30/2024 DISCHARGE DATE: 03/31/2024 FINAL DIAGNOSIS: Acute inflamed appendicitis. PROCEDURES: Laparoscopic appendectomy. HISTORY OF PRESENT ILLNESS: Elma is a 53-year-old obese female, who developed abdominal pain in the afternoon with some anorexia, nausea and diarrhea. She came to emergency room for evaluation. She thought it was like her previous C diff colitis. Her white count was elevated and she was tender in the lower abdomen, but more so on the left on the right. CT scan confirmed a 12 mm thickened inflamed appendix with some periappendiceal inflammation. I was asked to admit her as a general surgeon on-call. HOSPITAL COURSE: Elma received her antibiotics and I took her to the operating room that same day. She underwent an uncomplicated laparoscopic appendectomy. The intraop and postop course have been uncomplicated. She is now tolerating regular diet and ambulating about the hallways. She has been using Tylenol for pain. Her incisions are all healing well with minimal ecchymoses. At this point, she has reached discharge status. DISCHARGE PLANS AND MEDICATIONS: Elma is going to be discharged home with a small prescription for [place]is[place] 10/325 one tablet p.o. q.6 hours p.r.n. for severe postoperative pain. We will dispense 15 tablets with no refills. Otherwise, she is welcome to use Tylenol, ibuprofen or Aleve for snch-ky-mauvglrw postoperative pain, which she can purchase [id number]. She also has a prescription for diclofenac at home. She is also welcome to resume her other medications. She will continue a regular diet at home. She can continue her activities of daily living including walking up and down stairs and showering bathing as usual. She is not to do any heavy pushing, pulling, or lifting over about 10 pounds. 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 She wants to return to work on April 07, 2024. That should be fine. She will be returning to my office in 7 to 14 days for her surgical follow up. I reviewed this with Elma now several times. She has expressed understanding, agrees with above plan. Electronically Signed By: FANY COUCH MD 04/04/24 1238 PATIENT NAME: ELMA FARAH DISCHARGE SUMMARY DATE OF : 68 REPORT #: [id number] PHYSICIAN: FANY COUCH MD PCP: DEJAN SIEGEL PAC REPORT IS CONFIDENTIAL AND NOT TO BE RELEASED WITHOUT AUTHORIZATION [facility] [address] [place] [id number] Signed MD GAVIN Good/DULCE MARIAL /[id number] cc: MD Fany Darden MD Copies: GUIDO DANIEL MD, ANDREW L MD ~ Electronically Signed By: FANY COUCH MD 04/04/24 1238 PATIENT NAME: ELMA FARAH DISCHARGE SUMMARY DATE OF : 68 REPORT #: [id number] PHYSICIAN: FANY COUCH MD PCP: DEJAN SIEGEL PAC REPORT IS CONFIDENTIAL AND NOT TO BE RELEASED WITHOUT AUTHORIZATION
== END 2024-03-31 09:27 | disposition home or self-care (01) | DRG 399 ==
LOC: ED 16:25 → MS 16:26
PROVIDERS: Emergency Medicine; ADMIT Colon & Rectal Surgery; ATTEND Colon & Rectal Surgery
PROC: 0DTJ4ZZ Resection of Appendix, Percutaneous Endoscopic Approach (ICD-10-PCS; principal; 2024-03-28 21:44)
DX: K35.80 Unspecified acute appendicitis (principal); E66.9 Obesity, unspecified; E11.9 Type 2 diabetes mellitus without complications; J45.909 Unspecified asthma, uncomplicated; I10 Essential (primary) hypertension; E78.5 Hyperlipidemia, unspecified; R63.0 Anorexia; Z98.890 Other specified postprocedural states; Z87.440 Personal history of urinary (tract) infections; Z88.2 Allergy status to sulfonamides; Z87.19 Personal history of other diseases of the digestive system; Z88.1 Allergy status to other antibiotic agents; Z79.899 Other long term (current) drug therapy; Z79.84 Long term (current) use of oral hypoglycemic drugs; Z90.89 Acquired absence of other organs; Z88.8 Allergy status to other drugs, medicaments and biological substances; Z79.51 Long term (current) use of inhaled steroids; Z68.39 Body mass index [BMI] 39.0-39.9, adult
CPT/HCPCS: 00840; 36415; 74177; 80048; 80053; 81003; 83605; 83690; 83735; 84100; 84703; 85025; 85610; 87493; 93005; 93010; 96361; 96375; 96376; 99285-25; A9270; C9113; J0131; J0696; J1100; J1170; J1650; J1885; J2001; J2405; J2704; J3490; J7030; J7121; Q9967